=== PATIENT | male | born 1990 | race Two or more races ===

== ENCOUNTER 2020-04-14 03:23 | Emergency (ER) | payer SELFPAY ==
[2020-04-14] MEDS ORDERED: ONDANSETRON HCL INJ/PF 4 MG/2 ML SDV IV ONE (03:47)
[2020-04-14] MEDS ORDERED: KETOROLAC TROMETHAMINE INJ/PF 30 MG/1 ML SDV IV ONE ×2 (03:47→05:03)
[2020-04-14] MEDS ORDERED: NORMAL SALINE 1000 ML 1,000 ML IV ONE (03:47)
[2020-04-14] MEDS ORDERED: MORPHINE SULFATE 10 MG/ML INJ IV ONE ×2 (03:47→05:04)
--- NOTE | 2020-04-14 03:50 | ER Document Report ---
ED GI/ - General Chief Complaint: Abdominal Pain Stated Complaint: ABDOMINAL PAIN Time Seen by Provider: 04/14/20 03:45 Notes: Patient is a 29-year-old male that comes to the emergency department for chief complaint of sudden onset severe right-sided abdominal pain that started about 1 hour prior to arrival. Patient reports nausea, patient broke out into a sweat. Patient has not vomited, has no dysuria, he does report pain down to the ge nitals. Pain radiates around to the right flank as well. Patient denies fever. Patient denies any surgeries, daily medications, or known past medical history. Significant other at bedside. - Related Data Allergies/Adverse Reactions: No Known Allergies Allergy (Verified 04/14/20 03:41) Past Medical History - General Information source: Patient - Social History Smoking Status: Never Smoker Frequency of alcohol use: None Drug Abuse: None Lives with: Family Family History: Reviewed & Not Pertinent Patient has homicidal ideation: No Surgical Hx: Negative - Immunizations Immunizations up to date: Yes Hx Diphtheria, Pertussis, Tetanus Vaccination: Yes Review of Systems - Review of Systems Constitutional: No symptoms reported EENT: No symptoms reported Cardiovascular: No symptoms reported Respiratory: No symptoms reported Gastrointestinal: See HPI Genitourinary: See HPI Male Genitourinary: See HPI Musculoskeletal: No symptoms reported Skin: No symptoms reported Hematologic/Lymphatic: No symptoms reported Neurological/Psychological: No symptoms reported Physical Exam - Vital signs Vitals: Temp Pulse Resp BP Pulse Ox 98 F 81 24 H 157/113 H 96 04/14/20 03:39 04/14/20 03:39 04/14/20 03:39 04/14/20 03:39 04/14/20 03:39 - Notes Notes: GENERAL: Patient cannot hold still, crying out in pain, diaphoretic, in severe distress HEAD: Normocephalic, atraumatic. EYES: Pupils equal, round, and reactive to light. Extraocular movements intact. ENT: Oral mucosa moist, tongue midline. Oropharynx unremarkable. Airway patent. NECK: Full range of motion. Supple. Trachea midline. No lymphadenopathy. LUNGS: Clear to auscultation bilaterally, no wheezes, rales, or rhonchi. No respiratory distress. Non-tender chest wall. HEART: Regular rate and rhythm. No murmur ABDOMEN: General mid to lower right-sided abdominal tenderness, remaining abdomen benign GENITOURINARY: No swelling, tenderness, or concerning findings. Exam performed with Bethany GONSALVES at bedside EXTREMITIES: Moves all 4 extremities spontaneously. No edema, normal radial and dorsalis pedis pulses bilaterally. No cyanosis. BACK: no cervical, thoracic, lumbar midline tenderness. No saddle anesthesia, normal distal neurovascular exam. Moves all extremities in full range of motion. NEUROLOGICAL: Alert and oriented x3. Normal speech. Cranial nerves II through XII grossly intact. Strength 5/5 in all extremities. PSYCH: Agitated Course - Re-evaluation Re-evalutation: After initial medications patient is improved but has not had complete resolution of his symptoms. CBC, chemistry unremarkable, urine is still pending. CAT scan was performed after discussing options because patient has never had a kidney stone before and has persistent pain, this does show 1 mm passing stone with punctate nephrolithiasis essentially otherwise. I discussed the multiple stones, passing a stone, after additional medication symptoms finally resolved. Urine does not show infection. Discussed details, follow-up, return precautions at length, patient and significant other state appreciation and agreement. Stable and well-appearing at time of discharge. - Vital Signs Vital signs: Temp Pulse Resp BP Pulse Ox 98.7 F 66 14 125/76 98 04/14/20 07:07 04/14/20 07:07 04/14/20 07:07 04/14/20 07:07 04/14/20 07:07 - Laboratory Result Diagrams: 04/14/20 04:00 04/14/20 04:00 Laboratory results interpreted by me: 04/14/20 04/14/20 04/14/20 04:00 04:00 05:50 WBC 12.8 H Glucose 147 H ALT 99 H Urine Blood MODERATE H Discharge - Discharge Clinical Impression: Ureterolithiasis, Flank pain Abdominal pain Qualifiers: Abdominal location: lower abdomen, unspecified Qualified Code(s): R10.30 - Lower abdominal pain, unspecified Condition: Stable Disposition: HOME, SELF-CARE Additional Instructions: You are passing a 1 mm kidney stone on the right side. You also have additional kidney stones in your kidneys which may pass in the future. You should build to pass this 1 over the next several days. Drink plenty of water, take the medications as prescribed if needed. Follow-up with primary care. Return if you worsen including uncontrolled vomiting, severe worsening pain, fever, or any other concerning symptoms. Prescriptions: Ibuprofen [Motrin 600 mg Tablet] 600 mg PO Q6HP PRN #30 tablet PRN Reason: Oxycodone HCl/Acetaminophen [Percocet 5-325 mg Tablet] 1 tab PO TID PRN #15 tab PRN Reason: Promethazine HCl [Phenergan 25 mg Tablet] 25 mg PO Q6H PRN #15 tablet PRN Reason: Forms: Return to Work
[2020-04-14 04:30] LABS: ABSOLUTE BASOPHILS # (AUTO) 0.1 10^3/uL (0.0-0.2); ABSOLUTE EOSINOPHILS # (AUTO) 0.4 10^3/uL (0.0-0.6); ABSOLUTE NEUT (AUTO) 7.3 10^3/uL (1.7-8.2); BASOPHILS % (AUTO) 0.7 % (0-2); EOSINOPHILS % (AUTO) 2.8 % (0-6); HEMATOCRIT 46.7 % (37.9-51.0); HEMOGLOBIN 16.3 g/dL (13.5-17.0); LYMPHOCYTES % (AUTO) 31.4 % (13-45); MEAN CORPUSCULAR HEMOGLOBIN 29.6 pg (27.0-33.4); MEAN CORPUSCULAR HGB CONC 34.9 g/dL (32.0-36.0); MEAN CORPUSCULAR VOLUME 85 fl (80-97); MONOCYTES % (AUTO) 7.6 % (3-13); PLATELET COUNT 305 10^3/uL (150-450); RED CELL DISTRIBUTION WIDTH 13.5 % (11.5-14.0); SEGMENTED NEUTROPHILS % (AUTO) 57.5 % (42-78); TOTAL CELLS COUNTED % (AUTO) 100 %; WHITE BLOOD COUNT 12.8 10^3/uL (4.0-10.5)
[2020-04-14 04:49] LABS: ALBUMIN 4.8 g/dL (3.5-5.0); ALKALINE PHOSPHATASE 76 U/L (38-126); ANION GAP 13 (5-19); ASPARTATE AMINO TRANSFERASE 51 U/L (17-59); BILIRUBIN,DIRECT 0.3 mg/dL (0.0-0.4); BILIRUBIN,TOTAL 0.5 mg/dL (0.2-1.3); BLOOD UREA NITROGEN 17 mg/dL (7-20); CALCIUM 9.8 mg/dL (8.4-10.2); CARBON DIOXIDE 23 mmol/L (22-30); CHLORIDE 104 mmol/L (98-107); GLUCOSE 147 mg/dL (75-110); POTASSIUM 4.2 mmol/L (3.6-5.0); TOTAL PROTEIN 8.1 g/dL (6.3-8.2)
--- NOTE | 2020-04-14 04:58 | RADIOLOGY REPORT (SQ) ---
CLINICAL HISTORY: severe right abdominal pain COMPARISON: None. TECHNIQUE: CT ABDOMEN PELVIS WITHOUT IV CONTRAST on 04/14/2020 3:48 AM CDT This exam was performed according to our departmental dose-optimization program, which includes automated exposure control, adjustment of the mA and/or kV according to patient size and/or use of iterative reconstruction technique. FINDINGS: Lower lungs are clear. Abdomen: Liver is fatty in attenuation. There is no biliary dilatation. Gallbladder is unremarkable. The pancreas and spleen are normal in appearance. Adrenal glands are normal. There is a 2 mm lower pole left renal calculus. There are several punctate questionable lower pole right renal calculi. There is mild right hydronephrosis secondary to a 1 mm right UVJ calculus. Abdominal aorta is normal in course and caliber without aneurysm. There is no free air. There is no retroperitoneal adenopathy. Pelvis: There is no bowel obstruction. Urinary bladder is unremarkable. There is no free fluid. Appendix is normal. Skeleton: There are no acute osseous findings. No suspicious bony lesions. IMPRESSION: Mildly obstructing 1 mm right UVJ calculus.
[2020-04-14 06:18] LABS: APPEARANCE,URINE CLEAR; BILIRUBIN,URINE NEGATIVE (NEGATIVE); COLOR,URINE YELLOW; GLUCOSE, URINE NEGATIVE (NEGATIVE); KETONES,URINE NEGATIVE (NEGATIVE); LEUKOCYTE ESTERASE,URINE NEGATIVE (NEGATIVE); NITRITE,URINE NEGATIVE (NEGATIVE); PROTEIN,URINE NEGATIVE (NEGATIVE); URINE SPECIFIC GRAVITY 1.019; UROBILINOGEN,URINE NEGATIVE mg/dL (<2.0)
[2020-04-14] MEDS ORDERED: ONDANSETRON ODT 4 MG TAB (6 TAB/ER DISP) PO PRN (06:58)
[2020-04-14] MEDS ORDERED: HYDROCODONE/ACETAMINOPHEN 5-325 MG (6 TAB/ER DISP) PO PRN (06:58)
[2020-04-14 07:11] VITALS: BP 125/76
== END 2020-04-14 07:11 | disposition home or self-care (01) ==
LOC: ER 03:23
DX: N13.2 Hydronephrosis with renal and ureteral calculous obstruction (principal); R11.0 Nausea
CPT/HCPCS: 96376; 99285; 96361; 96374; 96375; 36415; 85025; 80053; 81001; 74176; J1885; J2270; J2405; J7030